=== PATIENT | male | born 1930 | race Two or more races ===

== ENCOUNTER 2018-11-27 09:16 | Inpatient (IN) | payer MEDICARE, OTHER ==
[~2018-11-27] VITALS: Ht 182.9 cm; Wt 89.4 kg
[2018-11-27] VITALS (33 sets, daily range): BP systolic 90–159; BP diastolic 52–115
[2018-11-27] MEDS ORDERED: SODIUM CHLORIDE 0.9% 1,000 ML IV ONE (11:46)
[2018-11-27 12:08] LABS: HEMATOCRIT. 44.1 % (42.0-52.0); MEAN CORPUSCULAR HEMOGLOBIN 31.2 pg (28.0-32.0); MEAN CORPUSCULAR VOLUME 91.8 fL (80.0-94.0); MEAN PLATELET VOLUME 7.1 fl (7.4-10.4); PLATELET 265 x1000/uL (130-400); RED BLOOD CELL COUNT 4.81 mill/uL (4.7-6.1); RED CELL DISTRIBUTION WIDTH 14.1 % (11.6-14.6)
[2018-11-27 12:13] LABS: CHLORIDE 109 mEq/L (98-107)
[2018-11-27 12:22] LABS: INR 2.2; PROTHROMBIN TIME 21.6 sec (9.6-11.0)
[2018-11-27] MEDS ORDERED: PHYTONADIONE 10 MG in DEXTROSE 5% WATER 50 ML IV SCH (12:45)
[2018-11-27] MEDS ORDERED: NICARDIPINE 40MG/200ML PREMIX 200 ML IV STA (12:48)
[2018-11-27 12:49] LABS: PLATELET ESTIMATE NORMAL
[2018-11-27] MEDS ORDERED: LEVETIRACETAM 1000MG/100ML 100 ML IV NR (13:00)
[2018-11-27] MEDS ORDERED: PHYTONADIONE 10MG/ML AMP ONE (13:28)
[2018-11-27] MEDS ORDERED: MORPHINE SULFATE 2 MG/ML CPJ (NOT FOR IM USE) IV PRN (13:30)
[2018-11-27] MEDS ORDERED: DEXT 5%/0.45% NACL 1000ML 1,000 ML IV SCH (13:30)
[2018-11-27] MEDS ORDERED: LORAZEPAM 2MG/ML CPJ IV PRN (13:30)
[2018-11-27] MEDS ORDERED: HYDROCODONE/ACETAMINOPHEN 5/325MG TABLET PO PRN (13:30)
[2018-11-27] MEDS ORDERED: CLONIDINE 0.1MG TABLET PO PRN (13:30)
[2018-11-27] MEDS ORDERED: ONDANSETRON HCL 4MG/2ML INJ IV PRN (13:30)
[2018-11-27] MEDS ORDERED: ACETAMINOPHEN 325MG TABLET PO PRN (13:30)
[2018-11-27] MEDS ORDERED: DILTIAZEM HCL 5MG/ML 5ML VIAL IV PRN (15:15)
[2018-11-27] MEDS: DEXT 5%/LACTATED RINGERS 1,000 ML IV SCH (16:17)
[2018-11-27] MEDS: DEXAMETHASONE 4MG/ML 1ML VIAL IV SCH (17:19)
[2018-11-27] MEDS: MORPHINE SULFATE 2 MG/ML CPJ (NOT FOR IM USE) IV PRN ×2 (17:22→21:52)
[2018-11-27] MEDS: LEVETIRACETAM 500 MG in SODIUM CHLORIDE 0.9% 100 ML IV SCH (20:56)
[2018-11-27] MEDS: METOPROLOL TARTRATE 25MG TABLET PO SCH (20:57)
[2018-11-27] MEDS: NICARDIPINE 100 MG in SODIUM CHLORIDE 0.9% 60 ML IV PRN (21:01)
[2018-11-27] MEDS: DILTIAZEM HCL 60MG TABLET PO SCH (22:00)
[2018-11-28] VITALS (73 sets, daily range): BP systolic 95–148; BP diastolic 28–120
[2018-11-28] MEDS: DEXAMETHASONE 4MG/ML 1ML VIAL IV SCH ×4 (00:56→18:47)
[2018-11-28] MEDS: DILTIAZEM HCL 60MG TABLET PO SCH ×3 (05:06→21:59)
[2018-11-28 05:08] LABS: HEMATOCRIT. 42.5 % (42.0-52.0); HEMOGLOBIN. 14.5 g/dL (14.0-18.0); MEAN CORPUSCULAR HEMOGLOBIN 31.4 pg (28.0-32.0); MEAN CORPUSCULAR VOLUME 91.8 fL (80.0-94.0); MEAN PLATELET VOLUME 7.7 fl (7.4-10.4); PLATELET 260 x1000/uL (130-400); RED BLOOD CELL COUNT 4.62 mill/uL (4.7-6.1); RED CELL DISTRIBUTION WIDTH 14.1 % (11.6-14.6)
[2018-11-28 05:10] LABS: INR 1.2; PROTHROMBIN TIME 12.1 sec (9.6-11.0)
[2018-11-28 05:17] LABS: CHLORIDE 108 mEq/L (98-107)
[2018-11-28 07:43] LABS: PLATELET ESTIMATE NORMAL
[2018-11-28] MEDS: DEXT 5%/LACTATED RINGERS 1,000 ML IV SCH (08:44)
[2018-11-28] MEDS: LEVETIRACETAM 500 MG in SODIUM CHLORIDE 0.9% 100 ML IV SCH ×2 (08:44→21:59)
[2018-11-28] MEDS: PHYTONADIONE 10MG/ML AMP SUBCUT SCH (08:45)
[2018-11-28] MEDS: METOPROLOL TARTRATE 25MG TABLET PO SCH (08:46)
[2018-11-28] MEDS ORDERED: IPRATROPIUM/ALBUTEROL 0.5-3(2.5)MG/3ML NEB HHN PRN (16:00)
[2018-11-29] VITALS (80 sets, daily range): BP systolic 106–169; BP diastolic 52–106
[2018-11-29] MEDS: DEXAMETHASONE 4MG/ML 1ML VIAL IV SCH ×4 (00:34→18:46)
[2018-11-29] MEDS: DILTIAZEM HCL 60MG TABLET PO SCH (04:46)
[2018-11-29] MEDS: DEXT 5%/LACTATED RINGERS 1,000 ML IV SCH ×2 (04:47→18:47)
[2018-11-29] MEDS: LEVETIRACETAM 500 MG in SODIUM CHLORIDE 0.9% 100 ML IV SCH ×2 (09:36→20:39)
[2018-11-29] MEDS: NICARDIPINE 100 MG in SODIUM CHLORIDE 0.9% 60 ML IV PRN (09:37)
[2018-11-29 09:39] LABS: INR 1.1; PROTHROMBIN TIME 11.1 sec (9.6-11.0)
[2018-11-29] MEDS: PHYTONADIONE 10MG/ML AMP SUBCUT SCH (09:57)
[2018-11-30] VITALS (84 sets, daily range): BP systolic 66–173; BP diastolic 26–110
[2018-11-30] MEDS: DEXAMETHASONE 4MG/ML 1ML VIAL IV SCH ×4 (01:48→17:38)
[2018-11-30] MEDS: MORPHINE SULFATE 2 MG/ML CPJ (NOT FOR IM USE) IV PRN (02:44)
[2018-11-30 05:56] LABS: HEMATOCRIT. 37.3 % (42.0-52.0); HEMOGLOBIN. 12.8 g/dL (14.0-18.0); MEAN CORPUSCULAR HEMOGLOBIN 31.6 pg (28.0-32.0); MEAN CORPUSCULAR VOLUME 91.8 fL (80.0-94.0); MEAN PLATELET VOLUME 7.6 fl (7.4-10.4); PLATELET 269 x1000/uL (130-400); RED BLOOD CELL COUNT 4.06 mill/uL (4.7-6.1)
[2018-11-30 06:02] LABS: CHLORIDE 111 mEq/L (98-107)
[2018-11-30] MEDS: PHYTONADIONE 10MG/ML AMP SUBCUT SCH (09:24)
[2018-11-30] MEDS: LEVETIRACETAM 500 MG in SODIUM CHLORIDE 0.9% 100 ML IV SCH ×2 (09:24→20:25)
[2018-11-30] MEDS: DEXT 5%/LACTATED RINGERS 1,000 ML IV SCH (11:32)
[2018-11-30] MEDS: AMLODIPINE 5MG TABLET PO SCH ×2 (11:33→20:26)
[2018-11-30] MEDS ORDERED: BUDESONIDE 0.5MG/2ML NEB HHN SCH (15:00)
[2018-11-30 18:03] LABS: PLATELET ESTIMATE NORMAL
[2018-11-30] MEDS: NICARDIPINE 100 MG in SODIUM CHLORIDE 0.9% 60 ML IV PRN (18:58)
[2018-12-01] VITALS (87 sets, daily range): BP systolic 33–167; BP diastolic 14–117
[2018-12-01] MEDS: DEXAMETHASONE 4MG/ML 1ML VIAL IV SCH ×4 (00:05→18:09)
[2018-12-01 00:13] LABS: CLARITY URINE CLEAR (CLEAR); COLOR URINE YELLOW (YELLOW); KETONES URINE NEGATIVE (NEGATIVE); LEUKOCYTE ESTERASE URINE NEGATIVE (NEGATIVE); NITRITE URINE NEGATIVE (NEGATIVE); OCCULT BLOOD URINE NEGATIVE (NEGATIVE); PH URINE 5.5 (4.5-8.0); PROTEIN URINE TRACE (NEGATIVE); SPECIFIC GRAVITY URINE 1.022 (1.005-1.030); UROBILINOGEN URINE 0.2 E.U./dL (0.2-1.0)
[2018-12-01 00:37] LABS: *AMPHETAMINES SCREEN URINE NEGATIVE (NEGATIVE); *BARBITURATES SCREEN URINE NEGATIVE (NEGATIVE); *BENZODIAZEPINES SCREEN URINE NEGATIVE (NEGATIVE); *COCAINE SCREEN URINE NEGATIVE (NEGATIVE)
[2018-12-01 00:38] LABS: CANNABINOID URINE SCREEN NEGATIVE (NEGATIVE); METHADONE URINE SCREEN NEGATIVE (NEGATIVE); OPIATES URINE SCREEN NEGATIVE (NEGATIVE); PHENCYCLIDINE URINE SCREEN NEGATIVE (NEGATIVE)
[2018-12-01] MEDS: DEXT 5%/LACTATED RINGERS 1,000 ML IV SCH ×2 (04:01→20:37)
[2018-12-01] MEDS: AMLODIPINE 5MG TABLET PO SCH ×2 (09:31→20:37)
[2018-12-01] MEDS: LEVETIRACETAM 500 MG in SODIUM CHLORIDE 0.9% 100 ML IV SCH ×2 (09:31→20:37)
[2018-12-01] MEDS: NICARDIPINE 100 MG in SODIUM CHLORIDE 0.9% 60 ML IV PRN (23:11)
[2018-12-02] VITALS (85 sets, daily range): BP systolic 81–185; BP diastolic 41–158
[2018-12-02] MEDS: DEXAMETHASONE 4MG/ML 1ML VIAL IV SCH ×4 (00:19→20:53)
[2018-12-02 05:52] LABS: HEMATOCRIT. 38.4 % (42.0-52.0); MEAN CORPUSCULAR VOLUME 91.5 fL (80.0-94.0); MEAN PLATELET VOLUME 7.4 fl (7.4-10.4); PLATELET 295 x1000/uL (130-400); RED CELL DISTRIBUTION WIDTH 13.9 % (11.6-14.6)
[2018-12-02 06:11] LABS: CHLORIDE 107 mEq/L (98-107)
[2018-12-02] MEDS: AMLODIPINE 5MG TABLET PO SCH (08:58)
[2018-12-02] MEDS: LEVETIRACETAM 500 MG in SODIUM CHLORIDE 0.9% 100 ML IV SCH (08:58)
[2018-12-02] MEDS ORDERED: LOSARTAN POTASSIUM 25 MG TABLET PO SCH (09:45)
[2018-12-02] MEDS: DILTIAZEM HCL 60MG TABLET PO SCH ×2 (10:11→14:00)
[2018-12-02 13:10] LABS: PLATELET ESTIMATE NORMAL
[2018-12-02] MEDS ORDERED: LEVETIRACETAM 500MG TABLET PO SCH (21:00)
[2018-12-03] MEDS ORDERED: DEXAMETHASONE 2MG TABLET PO SCH (09:00)
== END 2018-12-02 21:35 | DRG 82 ==
LOC: ER 09:16 → EDBEDREQ 13:22 → EDBEDREQSVC 13:22 → SUPCPDRO 13:29 → ENRESERV 14:30 → MICUSO 15:00
PROVIDERS: ADMIT Hospitalist; ATTEND Hospitalist
DX: S06.5X9A Traumatic subdural hemorrhage with loss of consciousness of unspecified duration, initial encounter (principal); J96.00 Acute respiratory failure, unspecified whether with hypoxia or hypercapnia; D68.59 Other primary thrombophilia; G93.40 Encephalopathy, unspecified; W18.30XA Fall on same level, unspecified, initial encounter; I48.2 Chronic atrial fibrillation; J44.9 Chronic obstructive pulmonary disease, unspecified; R73.9 Hyperglycemia, unspecified; M46.90 Unspecified inflammatory spondylopathy, site unspecified; D64.9 Anemia, unspecified; I08.2 Rheumatic disorders of both aortic and tricuspid valves; R26.9 Unspecified abnormalities of gait and mobility; D72.829 Elevated white blood cell count, unspecified; Z53.20 Procedure and treatment not carried out because of patient's decision for unspecified reasons; H91.90 Unspecified hearing loss, unspecified ear; I10 Essential (primary) hypertension; I27.20 Pulmonary hypertension, unspecified; M47.812 Spondylosis without myelopathy or radiculopathy, cervical region; S50.311A Abrasion of right elbow, initial encounter; T38.0X5A Adverse effect of glucocorticoids and synthetic analogues, initial encounter; W18.39XA Other fall on same level, initial encounter; Y93.89 Activity, other specified; Y92.89 Other specified places as the place of occurrence of the external cause; Y99.8 Other external cause status; Z79.01 Long term (current) use of anticoagulants; Z90.49 Acquired absence of other specified parts of digestive tract
CPT/HCPCS: 36415; 36430; 71045; 73080; 80048; 80305; 83605; 83735; 83880; 84484; 86850; 86900; 93005; 93306; 96365; 96375; 97162; 97166; 97530; 99291; J1100; J1953; J2270; J3430; J3490; J7030; J7050; J7060; J7121